=== PATIENT | female | born 1985 | race African-American/Black ===

== ENCOUNTER 2018-07-17 08:12 | Outpatient (RCR) | payer OTHER | END 2018-09-27 | disposition home or self-care (01) | LOC: WSOH | DX: S00.83XA Contusion of other part of head, initial encounter (principal); S06.0X0A Concussion without loss of consciousness, initial encounter; W22.8XXA Striking against or struck by other objects, initial encounter; Y93.F9 Activity, other caregiving; Y92.219 Unspecified school as the place of occurrence of the external cause; Y99.0 Civilian activity done for income or pay; Z87.820 Personal history of traumatic brain injury; Z79.84 Long term (current) use of oral hypoglycemic drugs; Z79.899 Other long term (current) drug therapy ==

== ENCOUNTER → 2020-09-14 | Outpatient (CLI) | payer BC | LOC: COL.RAD 07:30 | DX: R10.2 Pelvic and perineal pain (principal) ==

== ENCOUNTER → 2022-03-18 | Outpatient (CLI) | payer BC | LOC: DIA.ED 07:38 | DX: E11.65 Type 2 diabetes mellitus with hyperglycemia (principal); Z79.84 Long term (current) use of oral hypoglycemic drugs; E78.5 Hyperlipidemia, unspecified | CPT/HCPCS: G0108 ==

== ENCOUNTER → 2022-05-06 | Outpatient (CLI) | payer BC | LOC: DIA.ED 03-20 14:09 | DX: E11.65 Type 2 diabetes mellitus with hyperglycemia (principal); Z79.84 Long term (current) use of oral hypoglycemic drugs | CPT/HCPCS: G0108 ==

== ENCOUNTER → 2022-12-03 | Outpatient (CLI) | payer BC | LOC: DIA.ED 05:33 | DX: E11.65 Type 2 diabetes mellitus with hyperglycemia (principal); Z79.84 Long term (current) use of oral hypoglycemic drugs; E78.5 Hyperlipidemia, unspecified | CPT/HCPCS: G0108 ==